=== PATIENT | male | born 1990 | race Caucasian/White ===

== ENCOUNTER 2017-12-24 12:30 | Emergency (ER) | payer BC ==
[2017-12-24] MEDS ORDERED: Lidocaine 1% 20 ML MDV INJECT ONE (12:31)
[2017-12-24] MEDS ORDERED: Diphtheria,Pertussis(Acell),Tetanus Vaccine 0.5 ML SDV IM ONE (13:17)
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
== END 2017-12-24 13:37 | disposition home or self-care (01) ==
LOC: FB.ED 12:30
DX: S61.411A Laceration without foreign body of right hand, initial encounter (principal); F17.210 Nicotine dependence, cigarettes, uncomplicated; Z23 Encounter for immunization; Z79.899 Other long term (current) drug therapy; W26.8XXA Contact with other sharp object(s), not elsewhere classified, initial encounter
CPT/HCPCS: 12002; 90471; 90715; 99283